=== PATIENT | male | born 1990 | race Caucasian/White ===

== ENCOUNTER 2025-02-24 19:37 | Emergency (ER) | payer BC, SELFPAY ==
[2025-02-24 19:38] VITALS: BP 144/91; PULSE 108; RESP 17; TEMP 36.6; O2SAT 97; BMI 25.0
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
[2025-02-24 22:52] VITALS: BP 151/96; PULSE 80; RESP 16; TEMP 36.3; O2SAT 98
== END 2025-02-24 22:53 | disposition home or self-care (01) ==
PROVIDERS: Emergency Provider Emergency Medicine; Visit Provider Emergency Medicine
DX: S52.572A Other intraarticular fracture of lower end of left radius, initial encounter for closed fracture (principal); R03.0 Elevated blood-pressure reading, without diagnosis of hypertension; V49.40XA Driver injured in collision with unspecified motor vehicles in traffic accident, initial encounter; Y92.410 Unspecified street and highway as the place of occurrence of the external cause
CPT/HCPCS: 73110; 99283

== ENCOUNTER 2025-07-15 17:50 | Emergency (ER) | payer OTHER, BC, SELFPAY ==
[2025-07-15 17:50] VITALS: BP 129/96; PULSE 80; RESP 15; TEMP 37.1; O2SAT 80; BMI 24.4
--- NOTE | 2025-07-15 18:07 | ED.RN ---
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 [facility] has no one control cabinet assembler at this time for screening so patient was instructed that he needed to go to [facility] tomorrow when it is open to get a drug and alcohol screening.
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
[2025-07-15] MEDS: Tetracaine 0.5% Ophthalmic Bottle 5 DRP RIGHT EYE (18:29)
[2025-07-15] MEDS: Bacitracin/Polymin B Sulfate 3.5 GM OPTH.TUBE 1 APPLIC RIGHT EYE (19:25)
[2025-07-15 19:30] VITALS: BP 133/79; PULSE 76; RESP 16; TEMP 36.8; O2SAT 99
== END 2025-07-15 19:32 | disposition home or self-care (01) ==
PROVIDERS: Emergency Provider Emergency Medicine; Visit Provider Emergency Medicine
DX: T15.81XA Foreign body in other and multiple parts of external eye, right eye, initial encounter (principal); F17.210 Nicotine dependence, cigarettes, uncomplicated; W44.8XXA Other foreign body entering into or through a natural orifice, initial encounter; Y93.89 Activity, other specified; Y99.0 Civilian activity done for income or pay; Y92.89 Other specified places as the place of occurrence of the external cause
CPT/HCPCS: 99283